=== PATIENT | female | born 1960 | race Caucasian/White ===

== ENCOUNTER 2018-04-28 07:06 | Day surgery (SDC) | payer OTHER ==
[~2018-04-28] VITALS: Ht 162.6 cm; Wt 65.8 kg
[2018-04-28 07:48] VITALS: BP 137/77
[2018-04-28 12:31] VITALS: BP 139/96
== END 2018-04-28 12:15 | disposition home or self-care (01) ==
LOC: DS 07:06 → OR 09:30 → GI 09:30 → DS 12:15
PROVIDERS: Internal Medicine Gastroenterology
PROC: 0DBN8ZZ Excision of Sigmoid Colon, Via Natural or Artificial Opening Endoscopic (ICD-10-PCS; principal; 2018-04-28 09:30)
PROC: 0DBL8ZZ Excision of Transverse Colon, Via Natural or Artificial Opening Endoscopic (ICD-10-PCS; 2018-04-28 09:30)
DX: Z12.11 Encounter for screening for malignant neoplasm of colon (principal); K63.5 Polyp of colon; E78.5 Hyperlipidemia, unspecified; F17.210 Nicotine dependence, cigarettes, uncomplicated; Z68.27 Body mass index [BMI] 27.0-27.9, adult
CPT/HCPCS: 45378; J1200; J1610; J2250; J2310; J3010; J3490